=== PATIENT | female | born 1955 | race African-American/Black ===

== ENCOUNTER 2018-11-15 11:05 | Emergency (ER) | payer BC ==
[~2018-11-15] VITALS: Ht 160 cm; Wt 54.4 kg
[2018-11-15 11:11] VITALS: BP_SYST 122
--- NOTE | 2018-11-15 11:15 | NUR ---
Patient to ER bed 6 to gown for evaluation. Side rails up. Report given to Joanne HALL .
--- NOTE | 2018-11-15 11:47 | NUR ---
Patient presented to ER with c/o fall, 1 inch occipital hematoma with c-collar in place. Patient arrived to ER via ALS. Patient states [place] dog park, when a dog tripped her and patient was knocked onto back and back of head. Patient denies LOC, recalls events, denies N/V/D, pain 4/10 headche pain. No hx, denies any other illness. patient alert and appropriate, verbalizing health concers.
[2018-11-15] MEDS ORDERED: NACL 0.9% 1,000 ML IV ONE (11:51)
[2018-11-15] MEDS ORDERED: KETOROLAC TROMETHAMINE 30 MG VIAL IVP ONE (12:00)
--- NOTE | 2018-11-15 13:09 | NUR ---
Patient refused IV statrt, IVF, and IV pain medication. Daughter at bedside, patient appropriate sitting up in [facility]
--- NOTE | 2018-11-15 13:10 | NUR ---
Made Dr. jauregui aware of pt refusal of IV meds Iv fluids
--- NOTE | 2018-11-15 13:11 | NUR ---
Gave report to to Jin HALL
--- NOTE | 2018-11-15 13:35 | NUR ---
Patient refused C-collar, Dr. Dickson made aware.
--- NOTE | 2018-11-15 13:38 | NUR ---
Patient given written and verbal discharge instructions and verbalizes understanding. ER MD discussed with patient the results and treatment provided. Patient in stable condition. ID arm band removed. Rx of naprosyn given. Patient educated on pain management and to follow up with PMD. Pain Scale 0/10. Opportunity for questions provided and answered. Medication side effect fact sheet provided.
[2018-11-15 13:40] VITALS: BP_SYST 118
== END 2018-11-15 13:40 | disposition home or self-care (01) ==
LOC: SED 11:05
DX: S16.1XXA Strain of muscle, fascia and tendon at neck level, initial encounter (principal); S00.03XA Contusion of scalp, initial encounter; R03.0 Elevated blood-pressure reading, without diagnosis of hypertension; W18.09XA Striking against other object with subsequent fall, initial encounter; Y93.89 Activity, other specified; Y92.830 Public park as the place of occurrence of the external cause; Y99.8 Other external cause status
CPT/HCPCS: 70450; 70490; 99284; J7030; J1885

== ENCOUNTER 2019-07-24 11:43 | Emergency (ER) | payer BC ==
[~2019-07-24] VITALS: Ht 165.1 cm; Wt 68.0 kg
--- NOTE | 2019-07-24 11:55 | NUR ---
Patient to ER bed 5 to gown for evaluation. Side rails up. Report given to Nava HALL.
--- NOTE | 2019-07-24 11:57 | NUR ---
ER at bedside examining patient.
[2019-07-24] MEDS ORDERED: ACETAMINOPHEN 325 MG TABLET PO ONE (12:00)
--- NOTE | 2019-07-24 12:00 | NUR ---
Patient taken to radiology for exams. Patient escorted by radiology staff. Will continue to follow up and monitor.
[2019-07-24 12:01] VITALS: BP_SYST 130
--- NOTE | 2019-07-24 12:11 | NUR ---
Patient arrived via POV, AAOx4, and ambulatory with a limping gait. Patient states she tripped over her dog and had a fall. Patient states she has right hip pain and head pain. She did fall and strike her head. No LOC, dizziness, or lightheadedness. Patient states pain to hip is localized to right hip and not to lower back. Patient states she is able to stand and bear weight only with increased pain. Patient has been taken to radiology awaiting results. Significant other at bedside. Will continue to follow up and monitor.
[2019-07-24 13:10] VITALS: BP_SYST 128
--- NOTE | 2019-07-24 13:10 | NUR ---
Patient given written and verbal discharge instructions and verbalizes understanding. ER MD discussed with patient the results and treatment provided. Patient in stable condition. ID arm band removed. Rx of Flexeril and Tylenol given. Patient educated on pain management and to follow up with PMD. Pain Scale 4/10. Opportunity for questions provided and answered. Medication side effect fact sheet provided.
== END 2019-07-24 13:10 | disposition home or self-care (01) ==
LOC: SED 11:43
DX: S09.8XXA Other specified injuries of head, initial encounter (principal); M25.551 Pain in right hip; W18.09XA Striking against other object with subsequent fall, initial encounter; Y93.89 Activity, other specified; Y92.830 Public park as the place of occurrence of the external cause; Y99.8 Other external cause status
CPT/HCPCS: 70450-TC; 73502; 99284